=== PATIENT | male | born 1955 | race Caucasian/White ===

== ENCOUNTER → 2016-06-04 | Outpatient (CLI) | payer BC | LOC: OD 09:08 | PROVIDERS: ATTEND Internal Medicine Cardiovascular Disease | DX: R07.9 Chest pain, unspecified (principal); R06.02 Shortness of breath | CPT/HCPCS: 71020 ==

== ENCOUNTER → 2016-10-06 | Outpatient (CLI) | payer BC ==
--- NOTE | 2016-10-06 14:16 | XCELERA REPORT ---
[address] [address] Lower Extremity Arterial Evaluation Name: SATHYA DELGADILLO Age: 61 yrs Gender: Male : 1955 Patient Status: Outpatient Patient Location: Study Date: 10/06/2016 09:12 AM Procedure: A color flow and duplex scan of the lower extremity arteries was performed bilaterally with velocity and waveform anaylsis. Ankle brachial indicies performed. Reason For Study: PAIN Ordering Physician: DELFINO HOWE Performed By: Ramon Tan Measurements and Calculations Right Left SUPERVISOR FILM PROCESSING PSV 144.9 154.8 cm/sec Prox PFA PSV -104.3 -94.3 cm/sec Dist SFA PSV -118.8 -96.5 cm/sec Dist Pop A PSV 100.6 83.3 cm/sec Mid NORMAN PSV -41.0 cm/sec Dist NORMAN PSV 34.7 cm/sec Dist QUALITY ASSURANCE AUDITOR PSV 92.6 100.4 cm/sec Billy Pedis PSV 27.2 25.4 cm/sec Right Side Arterial Evaluation Normal velocity and triphasic waveforms noted from the Common Femoral artery to the Posterior Tibial artery. Biphasic with good waveform at the Anterior Tibial artery. . 0-19% stenosis at the Anterior Tibial artery. Ankle Brachial index is 1.16. Left Side Arterial Evaluation Normal velocity and triphasic waveforms noted from the Common Femoral artery to the Posterior Tibial artery. Occluded, reconstituted biphasic with fairly good waveform at the Anterior Tibial artery. . Occlusion, reconstitution at the Anterior Tibial artery. Ankle Brachial index is 1.17. Interpretation Summary Mild hemodynamically significant lesions in the bilateral lower extremities, on duplex imaging, at rest. : DELFINO HOWE [place]
== END ==
LOC: SP 08:50
PROVIDERS: ATTEND Internal Medicine Cardiovascular Disease
DX: I77.1 Stricture of artery (principal)
CPT/HCPCS: 93925

== ENCOUNTER 2017-10-24 21:23 | Emergency (ER) | payer BC ==
[2017-10-24 22:16] LABS: ABSOLUTE LYMPHOCYTES (AUTO) 0.8 10^3/uL (0.5-4.7); ABSOLUTE MONOCYTES (AUTO) 0.7 10^3/uL (0.1-1.4); ABSOLUTE NEUT (AUTO) 12.5 10^3/uL (1.7-8.2); BASOPHILS % (AUTO) 0.2 % (0-2); EOSINOPHILS % (AUTO) 0.1 % (0-6); HEMATOCRIT 45.1 % (37.9-51.0); HEMOGLOBIN 15.9 g/dL (13.5-17.0); LYMPHOCYTES % (AUTO) 5.8 % (13-45); MEAN CORPUSCULAR HEMOGLOBIN 29.8 pg (27.0-33.4); MEAN CORPUSCULAR HGB CONC 35.2 g/dL (32.0-36.0); MEAN CORPUSCULAR VOLUME 85 fl (80-97); PLATELET COUNT 200 10^3/uL (150-450); RED BLOOD COUNT 5.32 10^6/uL (4.35-5.55); RED CELL DISTRIBUTION WIDTH 13.5 % (11.5-14.0); SEGMENTED NEUTROPHILS % (AUTO) 88.9 % (42-78); TOTAL CELLS COUNTED % (AUTO) 100 %
[2017-10-24 22:36] LABS: ALANINE AMINOTRANSFERASE 55 U/L (21-72); ALBUMIN 4.4 g/dL (3.5-5.0); ALKALINE PHOSPHATASE 127 U/L (38-126); ANION GAP 11 (5-19); ASPARTATE AMINO TRANSFERASE 36 U/L (17-59); BILIRUBIN,DIRECT 0.4 mg/dL (0.0-0.4); BILIRUBIN,TOTAL 1.2 mg/dL (0.2-1.3); BLOOD UREA NITROGEN 23 mg/dL (7-20); CALCIUM 9.8 mg/dL (8.4-10.2); CARBON DIOXIDE 26 mmol/L (22-30); CHLORIDE 106 mmol/L (98-107); GLUCOSE 140 mg/dL (75-110); LIPASE 131.5 U/L (23-300); POTASSIUM 4.2 mmol/L (3.6-5.0); SODIUM 143.3 mmol/L (137-145); TOTAL PROTEIN 7.5 g/dL (6.3-8.2)
--- NOTE | 2017-10-24 22:48 | RADIOLOGY REPORT (SQ) ---
EXAM DESCRIPTION: ACUTE ABDOMEN SERIES COMPLETED DATE/TIME: 10/24/2017 10:24 pm REASON FOR STUDY: abdominal pain, no bm COMPARISON: Chest x-ray 06/04/2016. NUMBER OF VIEWS: Three views. TECHNIQUE: Frontal chest, supine abdomen and upright/decubitus abdomen radiographic images acquired. LIMITATIONS: None. FINDINGS: CHEST: No consolidation, pleural effusion or pneumothorax. FREE AIR: None. BOWEL GAS PATTERN: Nonobstructive pattern. No dilated loops or air fluid levels. CALCIFICATIONS: No suspicious calcifications. HARDWARE: None in the abdomen. SOFT TISSUES: No gross mass or suggestion of organomegaly. BONES: Multilevel degenerative changes are seen within the spine. There is a linear lucency at the p osterior right acetabulum. IMPRESSION: 1. Nonobstructive bowel gas pattern. 2. Linear lucency at the posterior right acetabulum, suggestive of a mildly displaced fracture. Plea se correlate with clinical history. TECHNICAL DOCUMENTATION: JOB ID: [id number] [employer] All Rights Reserved Reading location - IP/workstation name: [email or web address]
[2017-10-24] MEDS ORDERED: LACTULOSE SYRUP 20 GM/30 ML UDCUP PO ONE (23:30)
--- NOTE | 2017-10-24 23:34 | ER Document Report ---
ED General - General Chief Complaint: Abdominal Pain Stated Complaint: STOMACH PAIN Time Seen by Provider: 10/24/17 21:57 Notes: Patient is a 62 year old male without prior abdominal surgical history who presents with 6-8 hours of generalized abdominal pain. The patient describes it as a cramping, aching, severe pain that intermittently worsens. Nothing seems to improve or worsen the symptoms since onset. He has not had a bowel movement in the past 5 days. He notes associated nausea but no vomiting. He has a history of chronic constipation but states that his symptoms are not generally this bad. He has not seen his primary care doctor regarding today's concerns. He did take docusate at home without any improvement. He does continue to pass flatus. TRAVEL OUTSIDE OF THE [place] IN LAST 30 DAYS: No - Related Data Allergies/Adverse Reactions: No Known Drug Allergies Allergy (Verified 10/24/17 21:34) Past Medical History - General Information source: Patient - Social History Smoking Status: Never Smoker Frequency of alcohol use: None Drug Abuse: None Lives with: Spouse/Significant other Family History: Reviewed & Not Pertinent Patient has suicidal ideation: No Patient has homicidal ideation: No Renal/ Medical History: Denies: Hx Peritoneal Dialysis Review of Systems - Review of Systems Notes: Constitutional: Negative for fever. HENT: Negative for sore throat. Eyes: Negative for visual changes. Cardiovascular: Negative for chest pain. Respiratory: Negative for shortness of breath. Gastrointestinal: Positive for abdominal pain and nausea Genitourinary: Negative for dysuria. Musculoskeletal: Negative for back pain. Skin: Negative for rash. Neurological: Negative for headaches, weakness or numbness. 10 point ROS negative except as marked above and in HPI. Physical Exam - Vital signs Vitals: Temp Pulse Resp BP Pulse Ox 98.3 F 70 16 160/81 H 96 10/24/17 21:38 10/24/17 21:38 10/24/17 21:38 10/24/17 21:38 10/24/17 21:38 Interpretation: Hypertensive Notes: PHYSICAL EXAMINATION: GENERAL: Well-appearing, well-nourished and in no acute distress. HEAD: Atraumatic, normocephalic. EYES: Pupils equal round and reactive to light, extraocular movements intact, sclera anicteric, conjunctiva are normal. ENT: nares patent, oropharynx clear without exudates. Moderately dry mucous membranes. NECK: Normal range of motion, supple without lymphadenopathy LUNGS: Breath sounds clear to auscultation bilaterally and equal. No wheezes rales or rhonchi. HEART: Regular rate and rhythm without murmurs ABDOMEN: Soft, nontender, normoactive bowel sounds. No guarding, no rebound. No masses appreciated. EXTREMITIES: Normal range of motion, no pitting or edema. No cyanosis. NEUROLOGICAL: No focal neurological deficits. Moves all extremities spontaneously and on command. PSYCH: Normal mood, normal affect. SKIN: Warm, Dry, normal turgor, no rashes or lesions noted. Course - Re-evaluation Re-evalutation: 10/24/17 23:31 Patient presents with not having a bowel movement in the past 5 days as well as intermittent, general abdominal pain with associated nausea but no vomiting. He does continue to pass flatus. On abdominal examination the patient has no focal areas of tenderness, rebound or tympany. He has no rigidity, very benign abdominal exam. The patient is otherwise extremely well in appearance, vitals within normal limits without tachycardia, hypotension or fever. Labs likewise unremarkable without evidence of acute hepatitis, pancreatitis, or leukocytosis. No urinary symptoms. I do not clinically suspect based on exam, labs, vitals and history the patient has an acute bowel obstruction, bowel perforation, mesenteric ischemia, pancreatitis, acute biliary pathology, acute appendicitis, or any alternatively threatening pathology. 3 view of the abdomen does not demonstrate an obstructive pattern or free air. The patient's clinical history is most consistent with severe constipation. He has been given a dose of lactulose here in the emergency department and was started on a MiraLAX preparation at home. At this time will discharge with return precautions and follow-up recommendations. Verbal discharge instructions given a the bedside and opportunity for questions given. Medication warnings reviewed. Patient is in agreement with this plan and has verbalized understanding of return precautions and the need for primary care follow-up in the next 24-72 hours. - Vital Signs Vital signs: Temp Pulse Resp BP Pulse Ox 98.8 F 77 18 169/79 H 95 10/24/17 23:51 10/24/17 23:51 10/24/17 23:51 10/24/17 23:51 10/24/17 23:51 - Laboratory Result Diagrams: 10/24/17 22:05 10/24/17 22:05 Laboratory results interpreted by me: 10/24/17 10/24/17 22:05 22:05 WBC 14.0 H Seg Neutrophils % 88.9 H Lymphocytes % 5.8 L Absolute Neutrophils 12.5 H BUN 23 H Glucose 140 H Alkaline Phosphatase 127 H - Diagnostic Test Radiology reviewed: Image reviewed, Reports reviewed Radiology results interpreted by me: 10/24/17 23:32 Acute abdominal series: No evidence of obstruction or free air Discharge - Discharge Clinical Impression: Generalized abdominal pain, Nausea Constipation Qualifiers: Constipation type: unspecified constipation type Qualified Code(s): K59.00 - Constipation, unspecified Condition: Good Disposition: HOME, SELF-CARE Additional Instructions: Your labs and x-ray are reassuring today but do show significant constipation. Please follow up with your doctor as soon as possible regarding today's emergent visit and the symptoms that are bothering you. Return to the ED if your abdominal pain worsens or fails to improve, you develop bloody vomiting, bloody diarrhea, you are unable to tolerate fluids due to vomiting, fever greater than 101, or other symptoms that concern you. For your constipation: You should take 8 caps of MiraLAX and placed in 1 liter of Gatorade. Drink one half of the solution and wait 4 hours. If you do not have a bowel movement take the remaining half of the solution. After you have completed a MiraLAX preparation to prevent recurrent constipation I would encourage supplementing 10-15 g of fiber in her diet daily. I would also recommend taking 1-2 capfuls of MiraLAX daily targeting having one normal, soft bowel movement daily. Referrals: SABRA SAXENA MD [Primary Care Provider] - Follow up in 3-5 days
[2017-10-24 23:52] VITALS: BP 169/79
== END 2017-10-24 23:52 | disposition home or self-care (01) ==
LOC: ER 21:23
DX: K59.00 Constipation, unspecified (principal); R10.84 Generalized abdominal pain; R11.0 Nausea; Z79.899 Other long term (current) drug therapy
CPT/HCPCS: 36415; 74022; 80053; 83690; 85025; 99284

== ENCOUNTER 2017-11-10 09:00 | Day surgery (SDC) | payer BC ==
[2017-11-10] MEDS ORDERED: LIDOCAINE 2% INJ-PF (20 MG/ML) 10 ML AMPUL ONE (09:12)
[2017-11-10] MEDS ORDERED: MIDAZOLAM 2 MG/2 ML INJ ONE (09:13)
[2017-11-10] MEDS ORDERED: PROPOFOL INJ 200 MG/20 ML VIAL IV ONE (09:13)
[2017-11-10] MEDS ORDERED: FENTANYL CITRATE INJ/PF 100 MCG/2 ML AMPUL ONE (09:13)
[2017-11-10] MEDS ORDERED: ONDANSETRON HCL INJ/PF 4 MG/2 ML SDV ONE (09:13)
[2017-11-10] MEDS ORDERED: ALBUTEROL SULFATE 0.083% NEB 2.5 MG/3 ML AMPUL NEB ONE (09:57)
[2017-11-10] MEDS ORDERED: ONDANSETRON HCL INJ/PF 4 MG/2 ML SDV IV PRN (10:58)
[2017-11-10] MEDS ORDERED: PROMETHAZINE HCL INJ 25 MG/1 ML VIAL IV PRN ×2 (10:58)
[2017-11-10] MEDS ORDERED: DIPHENHYDRAMINE HCL 50 MG/ML VIAL IV PRN (10:58)
[2017-11-10] MEDS ORDERED: MORPHINE SULFATE 10 MG/ML INJ IV PRN (10:58)
[2017-11-10] MEDS ORDERED: MEPERIDINE HCL/PF INJ 25 MG/1 ML DISP.SYRIN IV PRN (10:58)
[2017-11-10] MEDS ORDERED: FENTANYL CITRATE INJ/PF 100 MCG/2 ML AMPUL IV PRN ×3 (10:58)
[2017-11-10 13:14] VITALS: BP 143/78
--- NOTE | 2017-11-10 13:51 | Operative Report ---
Operative Report DATE OF SURGERY: 11/10/17 Operative Report: The risks, benefits and alternatives of the procedure including risks of bleeding, perforation requiring surgery are explained to the patient in detail and informed consent is obtained. Patient was taken back to the operating room and placed in a left, lateral decubital position. Timeout was called. Propofol medications administered. A rectal examination is done which did not reveal any masses, tears or fissures. An Olympus videoscope was inserted into the patient's rectum. The scope was then carefully advanced all the way to the cecum. The cecum was identified by the usual anatomical landmarks including the ileocecal valve as well as the appendiceal office. Photodocumentation is obtained. Prep was not as good. Scope was then sequentially pulled back via the various segments of the colon including the ascending colon, hepatic flexure , transverse colon, splenic flexure, descending colon and finding to the rectosigmoid portions of the colon. Retroflexion maneuvers performed. PREOPERATIVE DIAGNOSIS: Personal history of polyp POSTOPERATIVE DIAGNOSIS: Several hyperplastic looking polyps in the descending colon, sigmoid and rectal area status post biopsy. Internal hemorrhoids OPERATION: Colonoscopy with biopsy SURGEON: JEN SPARKS ANESTHESIA: LMAC TISSUE REMOVED OR ALTERED: As noted above. COMPLICATIONS: None. ESTIMATED BLOOD LOSS: None. INTRAOPERATIVE FINDINGS: As noted above. PROCEDURE: Patient tolerated the procedure well. No immediate postprocedure complications are noted. Patient discharged in good condition. Discharge date 11/10/2017. Discharge diet: Regular. Discharge activity: Regular. 2-3 week follow-up to discuss findings. 5 year surveillance colonoscopy. We will wait on pathology.
== END 2017-11-10 13:05 | disposition home or self-care (01) ==
LOC: OROUT 09:00
PROVIDERS: ATTEND Internal Medicine Gastroenterology
PROC: 0DBN8ZX Excision of Sigmoid Colon, Via Natural or Artificial Opening Endoscopic, Diagnostic (ICD-10-PCS; 2017-11-10)
PROC: 0DBP8ZX Excision of Rectum, Via Natural or Artificial Opening Endoscopic, Diagnostic (ICD-10-PCS; principal; 2017-11-10 11:00)
DX: K63.5 Polyp of colon (principal); K52.9 Noninfective gastroenteritis and colitis, unspecified; K64.8 Other hemorrhoids; R19.4 Change in bowel habit; R10.84 Generalized abdominal pain; J45.909 Unspecified asthma, uncomplicated; K21.9 Gastro-esophageal reflux disease without esophagitis; I10 Essential (primary) hypertension; F17.200 Nicotine dependence, unspecified, uncomplicated
CPT/HCPCS: 45380; 88305 ×2; 94640; J2250; J3010; J2405; J2704; J3490; 811